=== PATIENT | female | born 1970 | race American Indian/Alaskan Native ===

== ENCOUNTER 2019-04-28 11:31 | Emergency (ER) | payer BC ==
--- NOTE | 2019-04-28 12:33 | XRay Report ---
CHEST 1 VIEW INDICATION: Lightheadedness/Dizziness. COMPARISON: None FINDINGS: Support devices: None. Heart: Within normal limits. Lungs/Pleura: No acute air space or interstitial disease. Additional findings: None. IMPRESSION: No acute findings. Signer Name: Tashi Joy Jr, MD Signed: 04/28/2019 12:28 PM Workstation Name: [id number]
[2019-04-28 12:58] LABS: Basophils % (Auto) 0.5 % (0.0-1.8); Eosinophils # (Auto) 0.1 K/mm3 (0.0-0.4); Eosinophils % (Auto) 1.8 % (0.0-4.3); Hematocrit 38.5 % (30.3-42.9); Hemoglobin 12.6 gm/dl (10.1-14.3); Lymphocytes # (Auto) 1.1 K/mm3 (1.2-5.4); Lymphocytes % (Auto) 20.3 % (13.4-35.0); Mean Corpuscular HGB Conc 33 % (30-34); Mean Corpuscular Volume 84 fl (79-97); Monocytes # (Auto) 0.4 K/mm3 (0.0-0.8); Monocytes % (Auto) 7.1 % (0.0-7.3); Platelet Count 216 K/mm3 (140-440); Red Blood Count 4.56 M/mm3 (3.65-5.03); Red Cell Distribution Width 15.8 % (13.2-15.2)
[2019-04-28 13:48] LABS: Alanine Aminotransferase 22 units/L (7-56); Albumin 4.2 g/dL (3.9-5); BUN/Creatinine Ratio 19; Blood Urea Nitrogen 13 mg/dL (7-17); Calcium 9.7 mg/dL (8.4-10.2); Hemolysis Index 6
[2019-04-28 14:21] LABS: Bacteria,Urine 1+ /HPF (Negative); Bilirubin,Urine NEG (Negative); Blood,Urine SM (Negative); Color,Urine Yellow (Yellow); Protein,Urine <15 mg/dL mg/dL (Negative); Urobilinogen,Urine < 2.0 mg/dL (<2.0)
--- NOTE | 2019-04-28 14:24 | Emergency Department Report ---
HPI - General Chief Complaint: Dizziness Time Seen by Provider: 04/28/19 12:57 - HPI HPI: 49-year-old [place] female, who works here in labor and delivery, presents to the emergency department after she had some type of episode where she became dizzy and had some numbness or paresthesias. Patient says that she was climbing some stairs when she became slightly winded. She then had some numbness and tingling to the face, around her lips, and to her bilateral hands. She has a very mild frontal headache. She denies any vision change, slurred speech, chest pain. She has a past medical history of hyperlipidemia. She did not take anything for her symptoms prior to presentation. ED Past Medical Hx - Past Medical History Previous Medical History?: Yes Hx Arthritis: Yes Hx Asthma: Yes - Surgical History Past Surgical History?: Yes Additional Surgical History: colon - Social History Smoking Status: Never Smoker Substance Use Type: None - Medications Home Medications: Home Medications Medication Instructions Recorded Confirmed Last Taken Type Acetaminophen/Codeine [Tylenol 1 tab PO Q6H PRN #12 tab 05/23/18 Unknown Rx /Codeine # 3 tab] Prednisone [predniSONE 10 mg 10 mg PO .TAPER #1 tab.ds.pk 05/23/18 Unknown Rx (6-Day Pack, 21 Tabs)] ED Review of Systems ROS: Stated complaint: FEET/HAND/FACE NUMB Other details as noted in HPI Comment: All other systems reviewed and negative Constitutional: denies: chills, fever Eyes: denies: eye pain, vision change ENT: denies: ear pain, throat pain Respiratory: shortness of breath. denies: cough Cardiovascular: denies: chest pain, palpitations Gastrointestinal: denies: abdominal pain, vomiting Genitourinary: denies: dysuria, discharge Musculoskeletal: denies: back pain, arthralgia Skin: denies: rash, lesions Neurological: headache, numbness, paresthesias, other (dizziness). denies: weakness Physical Exam - Physical Exam Vital Signs: Vital Signs 04/28/19 04/28/19 11:47 13:19 Temperature 98.5 F Pulse Rate 80 Respiratory 18 16 Rate Blood Pressure 149/86 [Right] O2 Sat by Pulse 99 Oximetry Physical Exam: GENERAL: The patient is well-developed well-nourished. HENT: Normocephalic. Atraumatic. Patient has moist mucous membranes. EYES: Extraocular motions are intact. Pupils equal reactive to light bilat erally. NECK: Supple. Trachea is midline. CHEST/LUNGS: Clear to auscultation. There is no respiratory distress noted. HEART/CARDIOVASCULAR: Regular. There is no tachycardia. There is no murmur. ABDOMEN: Abdomen is soft, nontender. Patient has normal bowel sounds. There is no abdominal distention. SKIN: Skin is warm and dry. NEURO: The patient is awake, alert, and oriented. The patient is cooperative. The patient has no focal neurologic deficits. Normal speech. Cranial nerves II through XII grossly intact. No pronator drift. No dysmetria. No facial asymmetry. MUSCULOSKELETAL: There is no tenderness or deformity. There is no limitation range of motion. There is no evidence of acute injury. ED Course Vital Signs 04/28/19 04/28/19 11:47 13:19 Temperature 98.5 F Pulse Rate 80 Respiratory 18 16 Rate Blood Pressure 149/86 [Right] O2 Sat by Pulse 99 Oximetry ED Medical Decision Making - Lab Data Result diagrams: 04/28/19 12:37 04/28/19 12:37 - EKG Data -: EKG Interpreted by Ut EKG shows normal: sinus rhythm, axis, intervals, QRS complexes, ST-T waves Rate: normal - EKG Data When compared to previous EKG there are: previous EKG unavailable Interpretation: normal EKG - Radiology Data Radiology results: image reviewed interpreted by me: Chest x-ray does not show any acute process. There are no pleural effusions, obvious pneumonia and there is no pneumothorax. - Medical Decision Making This patient presents after she had some type of incident in which she became dizzy or lightheaded, had some numbness or paresthesias, and had some mild montrell rtness of breath after climbing a few flights of stairs. At the time of my examination, the patient is awake, alert, oriented without any neurological deficits or signs of shortness of breath and is back at her baseline status. Cranial nerves are intact. There is no facial asymmetry, pronator drift, dysmetria. Labs are unremarkable including CBC, metabolic panel, TSH and urinalysis. A chest x-ray was done that does not show any pleural effusions, pneumonia, pneumothorax, focal consolidation, or any other acute process. EKG does not show any signs of ST elevation SC or significant dysrhythmia. The patient was seen ambulatory in the emergency department and both appears and feels stable. The patient declined having a CT scan of the head done at this time and given that she is at her baseline status without any obvious deficits, I will not pressure her to have the imaging done. However the patient understands that she must either call 911 or return to the emergency department immediately with any return or worsening of her symptoms that she may need a CT scan of the head done at that time. Otherwise she has good follow-up with a local primary care provider. Her vital signs have been stable throughout her ED course. - Differential Diagnosis TIA, dysrhythmia, electrolyte abnormalities, hypoglycemia Critical Care Time: No Critical care attestation.: If time is entered above; I have spent that time in minutes in the direct care of this critically ill patient, excluding procedure time. ED Disposition Clinical Impression: Dizziness, Paresthesias, Numbness and tingling Disposition: DC-01 TO HOME OR SELFCARE Is pt being admited?: No Condition: Stable Instructions: Paresthesia (ED), Lightheadedness (ED), Dizziness (ED) Additional Instructions: Please follow-up with your primary care physician. Return to the emergency De partment with any worsening of your symptoms or any acute distress. Referrals: ANDREZ QUINTANILLA NP-C [Referring] - 2-3 Days Time of Disposition: 14:24
[2019-04-28 14:44] VITALS: BP 124/87
== END 2019-04-28 14:41 | disposition home or self-care (01) ==
LOC: ED 11:31
DX: R20.0 Anesthesia of skin (principal); R20.2 Paresthesia of skin; R42 Dizziness and giddiness; J45.909 Unspecified asthma, uncomplicated; M19.90 Unspecified osteoarthritis, unspecified site; Z79.899 Other long term (current) drug therapy; Z91.040 Latex allergy status
CPT/HCPCS: 36415; 71045; 80053; 81001; 84443; 84484; 85025; 93005; 93010; 99284

== ENCOUNTER 2019-12-01 14:11 | Outpatient (CLI) | payer BC | END 2019-12-01 14:12 | disposition home or self-care (01) | LOC: XRAY 14:11 | PROVIDERS: ATTEND Specialist | DX: M51.34 Other intervertebral disc degeneration, thoracic region (principal); M54.9 Dorsalgia, unspecified; R06.02 Shortness of breath | CPT/HCPCS: 71046; 72070 ==

== ENCOUNTER 2020-03-08 10:33 | Day surgery (SDC) | payer BC ==
[~2020-03-08 10:33] MED LIST: SODIUM CHLORIDE 0.9% 1000 ML 1,000 ML IV SCH
--- NOTE | 2020-03-08 11:35 | Anesthesia Consultation ---
Anesthesia Consult and Med Hx Date of service: 03/08/20 - Airway Anesthetic Teeth Evaluation: Good ROM Head & Neck: Adequate Mental/Hyoid Distance: Adequate Mallampati Class: Class I Intubation Access Assessment: Good - Pulmonary Exam CTA: Yes - Cardiac Exam Cardiac Exam: RRR - Pre-Operative Health Status ASA Pre-Surgery Classification: ASA2 Proposed Anesthetic Plan: MAC - Pulmonary Hx Asthma: Yes (no inhlaer use in several months) Hx Respiratory Symptoms: No - Cardiovascular System Hx Hypertension: No Hx Heart Attack/AMI: No - Central Nervous System CVA: No - Endocrine Hx Renal Disease: No Hx Liver Disease: No Hx Insulin Dependent Diabetes: No Hx Non-Insulin Dependent Diabetes: No Hx Thyroid Disease: No - Other Systems Hx Obesity: No - Additional Comments Anesthesia Medical History Comments: No hx anesthetic complications.
--- NOTE | 2020-03-08 11:36 | Anesthesia Day of Surgery ---
Anesthesia Day of Surgery - Day of Surgery Patient Examined: Yes Patient H&P Reviewed: Yes Patient is NPO: Yes
[2020-03-08] MEDS ORDERED: propofoL 200 MG/20 ML VIAL IV ONE ×2 (12:37)
[2020-03-08] MEDS ORDERED: LIDOCAINE MPF (2%) 20 MG/1 ML VIAL 5 ML ONE (12:38)
--- NOTE | 2020-03-08 13:35 | Operative Report ---
Operative Report Operative Report: DOS: 03/08/2020 SURGEON: Alfonso Joiner MD EGD with snare polypectomy and biopsy REPORT PREOPERATIVE DIAGNOSIS and POSTOPERATIVE DIAGNOSIS: dyspepsia ESTIMATED BLOOD LOSS: minimal DESCRIPTION OF PROCEDURE: A high-resolution pediatric colonoscope was passed through the oropharynx, esophagus, stomach, and 3rd portion of duodenum. The scope was carefully withdrawn. Retroflexion was performed in the stomach. At the end of the procedure, the scope was cleaned using normal technique. Vital signs monitored continuously throughout. SEDATION: Provided by [facility]. COMPLICATIONS: None. FINDINGS: * No gross lesions in the entire visualized duodenum. Biopsies were taken to rule out celiac disease. A total of 6 biopsies were taken, the first from the duodenal bulb, with each subsequent biopsies progressively distal with the last biopsy as distal as could be reached with the endoscope * Mild gastritis in the gastric antrum and body with diffuse erythema. Biopsies were taken to rule out H. Pylori infection. A total of 5 biopsies were taken, 2 from the antrum, 1 from the incisura, 2 from the body. * 4 mm sessile polyp in the gastric antrum. Removed by cold snare polypectomy. * Irregular Z line 40 cm from incisors * Remainder of exam was unremarkable RECOMMENDATIONS: * Follow-up pathology results * Avoid NSAIDs and acidic foods * If symptoms do not fully resolve and biopsies are negative add on PPI
--- NOTE | 2020-03-08 13:49 | Operative Report ---
Operative Report Operative Report: DOS: 03/08/2020 SURGEON: Alfonso Joiner MD COLONOSCOPY REPORT PREOPERATIVE AND POSTOPERATIVE DIAGNOSIS: Personal history of colon polyps DESCRIPTION OF PROCEDURE: The colonoscope was passed to the terminal ileum as identified by the ileal tissue. Scope was carefully withdrawn. Retroflexion was performed in the rectum. At the end of procedure, the scope was cleaned using normal technique. Vital signs monitored continuously throughout. SEDATION: Provided by [facility]. Quality of the prep was good COMPLICATIONS: None. ESTIMATED BLOOD LOSS: none FINDINGS: * Normal digital rectal exam * Evidence of prior ileocecectomy, with end-to-side anastomosis. Healthy appearance of the anastomosis with no ulceration or sutures or jennifer visible * Normal terminal ileum * Small nonbleeding internal hemorrhoids * Remainder of exam was unremarkable RECOMMENDATIONS: Repeat surveillance colonoscopy in 5 years
[2020-03-08 14:34] VITALS: BP 114/77
== END 2020-03-08 14:34 | disposition home or self-care (01) ==
LOC: GIO 10:33
PROVIDERS: ATTEND Student in an Organized Health Care Education/Training Program
DX: Z12.11 Encounter for screening for malignant neoplasm of colon (principal); R10.13 Epigastric pain; K64.8 Other hemorrhoids; K29.70 Gastritis, unspecified, without bleeding; K31.89 Other diseases of stomach and duodenum; J45.909 Unspecified asthma, uncomplicated; M19.90 Unspecified osteoarthritis, unspecified site; K31.7 Polyp of stomach and duodenum; Z86.010 Personal history of colon polyps; Z91.040 Latex allergy status; Z79.899 Other long term (current) drug therapy
CPT/HCPCS: 43239; 43251; 45378; 88305; 88342; J2704; J7030

== ENCOUNTER 2021-01-24 15:05 | Outpatient (CLI) | payer BC ==
[2021-01-24 16:33] LABS: Bacteria,Urine 1+ /HPF (Negative); Bilirubin,Urine NEG (Negative); Blood,Urine MOD (Negative); Color,Urine Yellow (Yellow); Mucus,Urine FEW /HPF; Protein,Urine <15 mg/dL mg/dL (Negative); Urobilinogen,Urine < 2.0 mg/dL (<2.0)
== END 2021-01-24 15:06 | disposition home or self-care (01) ==
LOC: LAB 15:05
PROVIDERS: ATTEND Internal Medicine
DX: N39.0 Urinary tract infection, site not specified (principal)
CPT/HCPCS: 81001; 87086